=== PATIENT | female | born 1940 | race Caucasian/White ===

== ENCOUNTER 2023-04-27 06:37 | Day surgery (SDC) | payer MEDICARE, OTHER ==
[~2023-04-27] VITALS: Ht 162.6 cm; Wt 63.5 kg
[~2023-04-27 06:37] MED LIST: EVISTA60 MG PO; SYNTHROID25 MCG PO
[2023-04-27 10:02] VITALS: BP 134/51
== END 2023-04-27 10:24 | disposition home or self-care (01) ==
LOC: ENDO 06:37 → ORM 08:35 → ENDO 08:35 → ORM 09:10 → ENDO 10:24
PROVIDERS: ATTEND Internal Medicine Gastroenterology
PROC: 0DBK8ZX Excision of Ascending Colon, Via Natural or Artificial Opening Endoscopic, Diagnostic (ICD-10-PCS; principal; 2023-04-27)
PROC: 0DBE8ZX Excision of Large Intestine, Via Natural or Artificial Opening Endoscopic, Diagnostic (ICD-10-PCS; 2023-04-27)
PROC: 0DB78ZX Excision of Stomach, Pylorus, Via Natural or Artificial Opening Endoscopic, Diagnostic (ICD-10-PCS; 2023-04-27)
DX: K58.0 Irritable bowel syndrome with diarrhea (principal); D12.2 Benign neoplasm of ascending colon; K57.30 Diverticulosis of large intestine without perforation or abscess without bleeding; K64.8 Other hemorrhoids; K21.00 Gastro-esophageal reflux disease with esophagitis, without bleeding; K44.9 Diaphragmatic hernia without obstruction or gangrene; K22.2 Esophageal obstruction; K27.9 Peptic ulcer, site unspecified, unspecified as acute or chronic, without hemorrhage or perforation; K29.70 Gastritis, unspecified, without bleeding; K29.80 Duodenitis without bleeding; K31.9 Disease of stomach and duodenum, unspecified; E03.8 Other specified hypothyroidism; Z86.010 Personal history of colon polyps